=== PATIENT | female | born 1980 | race Caucasian/White ===

== ENCOUNTER 2016-09-24 13:53 | Emergency (ER) | payer MEDICAID ==
[~2016-09-24] VITALS: Ht 157.5 cm; Wt 56.0 kg
[2016-09-24 14:08] VITALS: Ht 157.5 cm; Wt 56.0 kg
[2016-09-24 17:05] LABS: BASOPHILS % 0.4 % (0.0-2.0); EOSINOPHILS # 0.1 10^3/ul (0.0-0.5); EOSINOPHILS % 2.1 % (0.0-7.0); HEMATOCRIT 41.2 % (37.0-47.0); HEMOGLOBIN 13.4 g/dl (12.0-16.0); LYMPHOCYTES # 2.8 10^3/ul (0.8-2.9); LYMPHOCYTES % 42.3 % (15.0-51.0); MEAN CORPUSCULAR HEMOGLOBIN 27.7 pg (29.0-33.0); MEAN CORPUSCULAR HGB CONC 32.5 g/dl (32.0-37.0); MEAN CORPUSCULAR VOLUME 85.1 fl (82.0-101.0); MEAN PLATELET VOLUME 9.5 fl (7.4-10.4); MONOCYTE # 0.5 10^3/ul (0.3-0.9); NEUTROPHIL # 3.2 10^3/ul (1.6-7.5); NEUTROPHILS % 48.1 % (39.0-77.0); PLATELET COUNT 272 10^3/UL (140-415); RED BLOOD COUNT 4.84 10^6/ul (4.20-5.40); RED CELL DISTRIBUTION WIDTH 13.8 % (11.5-14.5); WHITE BLOOD COUNT 6.7 10^3/ul (4.8-10.8)
[2016-09-24 17:09] LABS: ADD UMIC YES; UR ASCORBIC ACID 40 mg/dL (NEGATIVE); UR BILIRUBIN (Dip) NEGATIVE (NEGATIVE); UR BLOOD (Dip) 2+ mg/dL (NEGATIVE); UR CLARITY SLIGHTLY CLOUDY (CLEAR); UR COLOR YELLOW (YELLOW); UR GLUCOSE (Dip) NEGATIVE (NEGATIVE); UR KETONES (Dip) NEGATIVE (NEGATIVE); UR LEUKOCYTE ESTERASE (Dip) NEGATIVE Leu/ul (NEGATIVE); UR MUCUS FEW /HPF (NONE SEEN); UR NITRITE (Dip) NEGATIVE (NEGATIVE); UR RBC 4 /HPF (0-5); UR SPECIFIC GRAVITY (Dip) 1.018 (1.003-1.030); UR SQUAMOUS EPITHELIAL CELL FEW /HPF (FEW); UR TOTAL PROTEIN (Dip) NEGATIVE (NEGATIVE); UR UROBILINOGEN (Dip) NEGATIVE (NEGATIVE)
--- NOTE | 2016-09-24 17:10 | RADRPT ---
PROCEDURE: OBSTETRICAL ULTRASOUND WITH ENDOVAGINAL IMAGES CLINICAL INDICATION: vaginal bleeding TECHNIQUE: Multiple sonographic images of the pelvis were obtained utilizing a transabdominal and endovaginal technique. The images were reviewed on a PACS workstation. COMPARISON: None. LMP: 06/17/2016 FINDINGS: There is a single intrauterine with mean sac diameter of 4.39 cm and crown-rump length of 2.53 cm which is consistent with a gestational age of 9 weeks, 5 days. The estimated date of delivery by ultrasound is 04/24/2017 . The estimated gestational age by LMP is 14 weeks, 1 day . The estimated date of delivery by LMP is 03/24/2017 . No heart tones are detected. The right ovary measures 3.4 x 2.3 x 3 point cm. The left ovary is not visualized. There is normal v ascular flow in the right ovary. There is a 1.1 cm cystic lesion with low level internal echoes in the right ovary which may be a hem orrhagic/corpus luteal cyst. No significant pelvic free fluid is identified. IMPRESSION: An intrauterine is identified with crown-rump length of 2.52 cm and it no heart tone s consistent with early demise. Continued sonographic follow-up is recommended. 1.1 cm minimally complex cystic lesion in the right ovary may be a hemorrhagic/corpus luteal cyst. Nonvisualization of the left ovary. RPTAT: EE Physician Durga Date Time Electronically viewed and signed by Physician Durga on 09/24/2016 17:09 /
--- NOTE | 2016-09-24 17:35 | ERD ---
ER Documentation Chief Complaint Date/Time DATE: 09/24/16 TIME: 17:31 Chief Complaint VAG BLEED TODAY 14 WEEKS HPI This a 35-year-old female who presents to the emergency department today complaining of vaginal bleeding that started on Saturday. States she is approximate 14 weeks . She has an appointment tomorrow with her OB/ [facility]. States her last ultrasound on August 29, 2016 was normal. States she does have some nausea and crampy abdominal pain. Denies any fevers or chills. ROS All systems reviewed and are negative except as per history of present illness. Medications Home Meds Active Scripts Acetaminophen* (Tylophen*) 500 Mg Capsule, 1 CAP PO Q6H Y for PAIN AND OR ELEVATED TEMP, #30 CAP Prov:ELLA JARAMILLO PA-C 09/24/16 Allergies Allergies: Coded Allergies: No Known Allergy (Unverified , 09/24/16) PMhx/Soc Medical and Surgical Hx: pt denies Medical Hx, pt denies Surgical Hx History of Surgery: No Anesthesia Reaction: No Hx Neurological Disorder: No Hx Respiratory Disorders: No Hx Cardiac Disorders: No Hx Psychiatric Problems: No Hx Miscellaneous Medical Probl: No Hx Alcohol Use: No Hx Substance Use: No Hx Tobacco Use: No Smoking Status: Never smoker Physical Exam Vitals Vital Signs Date Time Temp Pulse Resp B/P Pulse Ox O2 Delivery O2 Flow Rate FiO2 09/24/16 14:08 98.0 68 18 101/55 99 Physical Exam Const: No acute distress Head: Atraumatic Eyes: Normal Conjunctiva ENT: Normal External Ears, Nose and Mouth. Neck: Full range of motion..~ No meningismus. Resp: Clear to auscultation bilaterally Cardio: Regular rate and rhythm, no murmurs Abd: Soft, mild pelvic tenderness non distended. Normal bowel sounds. No tenderness at McBurney's Skin: No petechiae or rashes Back: No midline or flank tenderness Ext: No cyanosis, or edema Neur: Awake and alert Psych: Normal Mood and Affect Result Diagram: 09/24/16 1643 Results 24 hrs Laboratory Tests Test 09/24/16 16:43 White Blood Count 6.710^3/ul Red Blood Count 4.8410^6/ul Hemoglobin 13.4g/dl Hematocrit 41.2% Mean Corpuscular Volume 85.1fl Mean Corpuscular Hemoglobin 27.7pg Mean Corpuscular Hemoglobin Concent 32.5g/dl Red Cell Distribution Width 13.8% Platelet Count 86562^3/UL Mean Platelet Volume 9.5fl Neutrophils % 48.1% Lymphocytes % 42.3% Monocytes % 7.0% Eosinophils % 2.1% Basophils % 0.4% Nucleated Red Blood Cells % 0.0/100WBC Neutrophils # 3.210^3/ul Lymphocytes # 2.810^3/ul Monocytes # 0.510^3/ul Eosinophils # 0.110^3/ul Basophils # 0.010^3/ul Nucleated Red Blood Cells # 0.010^3/ul Urine Color YELLOW Urine Clarity SLIGHTLY CLOUDY Urine pH 5.0 Urine Specific [place] 1.018 Urine Ketones NEGATIVEmg/dL Urine Nitrite NEGATIVEmg/dL Urine Bilirubin NEGATIVEmg/dL Urine Urobilinogen NEGATIVEmg/dL Urine Leukocyte Esterase NEGATIVELeu/ul Urine Microscopic RBC 4/HPF Urine Microscopic WBC 2/HPF Urine Squamous Epithelial Cells FEW/HPF Urine Mucus FEW/HPF Urine Hemoglobin 2+mg/dL Urine Glucose NEGATIVEmg/dL Urine Total Protein NEGATIVEmg/dl Beta HCG, Quantitative 3017.0mIU/ml DIAGNOSTIC IMAGING REPORT Patient: RENO JANG : 1980 Age: 35 Sex: F MR #: [id number] DOS: 09/24/16 0000 Ordering MD: ELLA JARAMILLO PA-C Location: [facility] Room/Bed: PROCEDURE: OBSTETRICAL ULTRASOUND WITH ENDOVAGINAL IMAGES CLINICAL INDICATION: vaginal bleeding TECHNIQUE: Multiple sonographic images of the pelvis were obtained utilizing a transabdominal and endovaginal technique. The images were reviewed on a PACS workstation. COMPARISON: None. LMP: 06/17/2016 FINDINGS: There is a single intrauterine with mean sac diameter of 4.39 cm and crown-rump length of 2.53 cm which is consistent with a gestational age of 9 weeks, 5 days. The estimated date of delivery by ultrasound is 04/24/2017 . The estimated gestational age by LMP is 14 weeks, 1 day . The estimated date of delivery by LMP is 03/24/2017 . No heart tones are detected. The right ovary measures 3.4 x 2.3 x 3 point cm. The left ovary is not visualized. There is normal vascular flow in the right ovary. There is a 1.1 cm cystic lesion with low level internal echoes in the right ovary which may be a hemorrhagic/corpus luteal cyst. No significant pelvic free fluid is identified. IMPRESSION: An intrauterine is identified with crown-rump length of 2.52 cm and it no heart tones consistent with early demise. Continued sonographic follow-up is recommended. 1.1 cm minimally complex cystic lesion in the right ovary may be a hemorrhagic/ corpus luteal cyst. Nonvisualization of the left ovary. RPTAT: EE Corey Lawson Physician Date Time Electronically viewed and signed by Corey Lawson Physician on 09/24/2016 17:09 RA/ CC: ELLA JARAMILLO PA-C Procedures/MDM This is a 35-year-old female who presents to the emergency department today complaining of vaginal bleeding. Patient states she is approximately 14 weeks given this I did obtain a complete OB workup. Laboratory work shows no elevated white blood cell count. She is not anemic. Platelets are within normal limits. UA is negative for infection Beta quant hCG 3017.0 Rh status A+ Ultrasound shows an single intrauterine consistent with a gestational age of 9 weeks and 5 days. There are no heart tones detected. There is no pelvic free fluid. There is a 1.1 cm minimally complex cystic lesion in the right ovary that may be a hemorrhagic or corpus luteal cyst. Patient symptoms at this time is consistent with vaginal bleeding in early however given no heart tones likely failed and demise especially given patient's low beta quant. I have explained this to the patient. Have explained to the patient that she is probably going to continue to have vaginal bleeding. Patient is afebrile and otherwise well-appearing. I have low suspicion for ectopic , tubo ovarian abscess, ovarian torsion. Patient declined pain medication or nausea medication here in the emergency department. She will begin a prescription for Tylenol for home I have explained the results to the patient. I have explained to the patient that they need to follow-up in 48 hours for a repeat beta quant. She does have an appointment with her clinic tomorrow. She was instructed to take all her paperwork with her At this time the patient is stable for discharge and outpatient management. Patient should follow up with their PCP in the next 1-2 days. They may return to the emergency department sooner for any persistent or worsening of symptoms. Patient understood and agreed with the plan. Departure Diagnosis: Primary Impression: Vaginal bleeding in patient at less than 20 weeks gestation Condition: ELLA Acosta PA-C Sep 24, 2016 17:35
[2016-09-24] MEDS ORDERED: ACET500C5 PO (18:42)
[2016-09-24 18:48] VITALS: BP 125/80; PULSE 76; RESP 18; TEMP 98
== END 2016-09-24 18:51 | disposition home or self-care (01) ==
LOC: FTE 13:53
DX: O20.9 Hemorrhage in early pregnancy, unspecified (principal); R10.2 Pelvic and perineal pain; Z3A.14 14 weeks gestation of pregnancy
CPT/HCPCS: 36415; 76805; 81001; 84702; 85025; 86900; 86901; Z7502